=== PATIENT | female | born 2000 | race Caucasian/White ===

== ENCOUNTER 2023-03-31 03:19 | Emergency (ER) | payer SELFPAY ==
[~2023-03-31] VITALS: Ht 154.9 cm; Wt 86.2 kg
[2023-03-31 03:30] VITALS: BP 168/100; PULSE 111; RESP 17; TEMP 98.1; O2SAT 99
[2023-03-31] MEDS ORDERED: IBUPROFEN 600 MG TAB PO ONE (05:25)
[2023-03-31] MEDS ORDERED: IBUP-2213 PO (05:47)
[2023-03-31 06:13] VITALS: BP 123/82; PULSE 87; RESP 16; TEMP 98; O2SAT 98
== END 2023-03-31 06:13 | disposition home or self-care (01) ==
LOC: MED 03:19
DX: S62.632A Displaced fracture of distal phalanx of right middle finger, initial encounter for closed fracture (principal); Z79.1 Long term (current) use of non-steroidal anti-inflammatories (NSAID); V89.2XXA Person injured in unspecified motor-vehicle accident, traffic, initial encounter; Y93.89 Activity, other specified; Y92.410 Unspecified street and highway as the place of occurrence of the external cause; Y99.8 Other external cause status
CPT/HCPCS: 73130; 99283

== ENCOUNTER 2023-09-26 18:26 | Emergency (ER) | payer OTHER ==
[~2023-09-26] VITALS: Ht 154.9 cm; Wt 95.3 kg
[~2023-09-26 18:26] MED LIST: IBUP-2213 PO
[2023-09-26 19:01] VITALS: BP 145/85; PULSE 102; RESP 18; TEMP 98.1; O2SAT 98
[2023-09-26] MEDS: IBUPROFEN 600 MG TAB PO ONE (20:24)
[2023-09-26] MEDS: BACITRACIN OINT 500 UNITS/GM PKT TP ONE (20:25)
[2023-09-26] MEDS ORDERED: BACI-418 TP (21:51)
[2023-09-26] MEDS ORDERED: IBUP-2213 PO (21:51)
[2023-09-26 22:25] VITALS: BP 145/85; PULSE 102; RESP 18; TEMP 98.1; O2SAT 98
== END 2023-09-26 22:25 | disposition home or self-care (01) ==
LOC: MED 18:26
DX: S66.911A Strain of unspecified muscle, fascia and tendon at wrist and hand level, right hand, initial encounter (principal); S93.401A Sprain of unspecified ligament of right ankle, initial encounter; S86.912A Strain of unspecified muscle(s) and tendon(s) at lower leg level, left leg, initial encounter; Z79.899 Other long term (current) drug therapy; W18.39XA Other fall on same level, initial encounter; Y92.89 Other specified places as the place of occurrence of the external cause; Y93.89 Activity, other specified; Y99.8 Other external cause status
CPT/HCPCS: 73110; 73562; 73610; 99284